=== PATIENT | female | born 1940 | race Caucasian/White ===

== ENCOUNTER 2024-05-07 08:26 | Day surgery (SDC) | payer MEDICARE, OTHER ==
[~2024-05-07 08:26] MED LIST: Sodium Chloride 0.9% 10 ML Syringe FLUSH PRN; Sodium Chloride 0.9% 10 ML Syringe FLUSH SCH
[2024-05-07] MEDS ORDERED: Lidocaine 1% 5 ML VIAL ONE (08:36)
[2024-05-07] MEDS ORDERED: Propofol 200 MG/20 ML SDV ONE ×3 (08:36)
[2024-05-07] MEDS ORDERED: fentaNYL 100 MCG/2 ML SDV ONE (08:36)
[2024-05-07] MEDS ORDERED: ceFAZolin 2 GM Vial ONE (08:37)
[2024-05-07] MEDS ORDERED: Midazolam 1 MG/ML 2 ML SDV ONE (08:37)
[2024-05-07] MEDS ORDERED: Dexamethasone 4 MG/ML 5 ML MDV ONE (08:49)
[2024-05-07] MEDS: Lactated Ringers 1,000 ML IV SCH (09:00)
[2024-05-07] MEDS ORDERED: Ropivacaine 0.5% 5 MG/ML 30 ML SDV ONE (09:24)
[2024-05-07 09:25] LABS: INR 1.01; PROTHROMBIN TIME 10.7 SECONDS (9.7-12.0)
[2024-05-07] MEDS ORDERED: EPINEPHrine 1 MG/ML SDV ONE (09:25)
[2024-05-07] MEDS ORDERED: dexmedeTOMIDine HCl 200 MCG/2 ML SDV ONE (09:25)
[2024-05-07 09:27] LABS: PTT,PARTIAL THROMBOPLSTIN TIME 25.2 SECONDS (21.7-31.4)
[2024-05-07] MEDS ORDERED: Ondansetron 4 MG/2 ML SDV ONE (10:21)
[2024-05-07] MEDS ORDERED: fentaNYL 250 MCG/5 ML SDV ONE (10:29)
[2024-05-07] MEDS ORDERED: Lactated Ringers 1,000 ML ONE (10:50)
[2024-05-07] MEDS ORDERED: Ketorolac 15 MG/ML SDV ONE (11:15)
[2024-05-07] MEDS: Morphine 8 MG, EPINEPHrine 0.3 MG, Cefuroxime 750 MG, Ketorolac 30 MG, Sodium Chloride ... PRN (11:17)
[2024-05-07] MEDS: Vancomycin 1 GM SDV ONE (11:22)
[2024-05-07] MEDS: Tranexamic Acid 1,000 MG/10 ML Vial ONE (11:22)
[2024-05-07] MEDS ORDERED: HYDROmorphone 0.5 MG/0.5 ML Syringe ONE (11:51)
[2024-05-07] MEDS ORDERED: fentaNYL 100 MCG/2 ML SDV IVPUSH PRN (12:16)
[2024-05-07] MEDS ORDERED: HYDROmorphone 0.5 MG/0.5 ML Syringe IVPUSH PRN (12:16)
[2024-05-07] MEDS ORDERED: Ondansetron 4 MG/2 ML SDV IVPUSH PRN (12:16)
[2024-05-07] MEDS ORDERED: Acetaminophen/Codeine 300-30 MG Tab PO PRN (12:23)
== END 2024-05-07 15:45 | disposition home or self-care (01) ==
LOC: JD.SDS 08:26 → MERGE 10:30 → JD.SDS 15:45
PROVIDERS: ATTEND Orthopaedic Surgery
DX: M17.11 Unilateral primary osteoarthritis, right knee (principal); I10 Essential (primary) hypertension; J45.909 Unspecified asthma, uncomplicated; K21.9 Gastro-esophageal reflux disease without esophagitis; Z79.899 Other long term (current) drug therapy; Z88.5 Allergy status to narcotic agent; Z88.8 Allergy status to other drugs, medicaments and biological substances
CPT/HCPCS: 0055T; 27447; 36415; 73560; 85610; 85730; 97110; 97161; C1713; C1776; J0171; J0690; J0697; J1100; J1170; J1885; J2250; J2270; J2405; J2704; J2795; J3010; J3370; J7120; 01402; 64447; 99100; J3490